=== PATIENT | female | born 1995 | race Caucasian/White ===

== ENCOUNTER 2019-11-26 20:17 | Emergency (ER) | payer SELFPAY ==
[~2019-11-26] VITALS: Ht 172.7 cm; Wt 107.7 kg
[2019-11-26 20:24] VITALS: BP 109/72; TEMP 98.1
[2019-11-26 22:03] VITALS: PULSE 97
== END 2019-11-26 22:03 | disposition home or self-care (01) ==
LOC: COL.ER 20:17
DX: S93.602A Unspecified sprain of left foot, initial encounter (principal); X50.1XXA Overexertion from prolonged static or awkward postures, initial encounter

== ENCOUNTER → 2020-08-31 | Outpatient (CLI) | payer OTHER | LOC: MC.RAD 09:58 | DX: N63.24 Unspecified lump in the left breast, lower inner quadrant (principal) ==